=== PATIENT | male | born 1975 | race Caucasian/White ===

== ENCOUNTER 2018-11-22 03:16 | Inpatient (IN) | payer OTHER ==
[2018-11-22] VITALS (31 sets, daily range): BP systolic 103–127; BP diastolic 63–115
[~2018-11-22] VITALS: Ht 181.6 cm; Wt 97.3 kg
--- OUTSIDE RECORDS SUMMARY | 2018-11-22 03:18 | XMS REPORT | Continuity of Care Document ---
Author Author [facility] Organization [facility] Address Unknown Phone Unavailable Care Team Providers Care Thread Cutter Tender Name Role Phone MD Tuan, Tracey MCDONNELL Unavailable Insurance Providers Payer name Policy type / Coverage type Policy ID Covered democrat ID Policy [place] AETNA - CHOICE - NAP (POS II) AETNA - AHF - CHOICE (POS II) AETNA - CHOICE - NAP (POS II) AETNA - CHOICE - NAP (POS II) AETNA - CHOICE - NAP (POS II) AETNA - CHOICE - NAP (POS II) Encounters Encounter Performer Location Date Lab Report Tracey Dickerson MD [facility] May 23, 2015 Problems Problem Effective Dates Problem Status RECTAL BLEEDING May 23, 2015 Active Procedures Date Description Comments May 23, 2015 smoking status Never smoker Immunizations Vaccine Date Status influenza immunization (Flu Vax) has been administered Sep 30, 2014 completed Vital Signs Date Description Test Result May 23, 2015 height E&M - 8302-2 HEIGHT 71 in May 23, 2015 weight E&M - 3141-9 WEIGHT 236 lb May 23, 2015 temperature E&M TEMPERATURE 97.0 deg f May 23, 2015 pulse rate E&M - 8867-4 PULSE RATE 73 /min May 23, 2015 blood pressure, systolic - 8480-6 BP SYSTOLIC 135 mm Hg May 23, 2015 blood pressure, diastolic - 8462-4 BP DIASTOLIC 94 mm Hg Results Date Description Test Name Value Reference Interpretation Status May 23, 2015 hemoglobin, blood HGB 15.1 g/dL 14.0-18.0 May 23, 2015 hematocrit, blood HCT 45.1 % 42.0-54.0 May 23, 2015 platelet count PLATELETS 233 K/CMM /mm3 133-450 May 23, 2015 sodium, serum SODIUM 140 MEQ/L mmol/L 135-145 May 23, 2015 potassium, serum POTASSIUM 5.2 MEQ/L mmol/L 3.5-5.1 High May 23, 2015 creatinine, serum CREATININE 0.8 mg/dL 0.5-1.4 May 23, 2015 urea nitrogen, blood BUN 10 mg/dL 7-22 May 23, 2015 urea nitrogen/creatinine ratio, serum BUN/CREAT 12 null 6-25 May 23, 2015 albumin, serum ALBUMIN 4.4 g/dL 3.5-5.0 May 23, 2015 calcium, serum CALCIUM 9.5 mg/dL 8.5-10.5 May 23, 2015 alanine aminotransferase (SGPT), serum SGPT (ALT) 56 U/L 0-65 May 23, 2015 aspartate aminotransferase (SGOT), serum SGOT (AST) 29 U/L 0-37 May 23, 2015 alkaline phosphatase, serum ALK PHOS 88 U/L 39-136 May 23, 2015 prothrombin time (patient) PT PATIENT 12.7 s 12.0-14.7 May 23, 2015 international normalized ratio (INR) INR 0.95 null 0.85-1.17
--- OUTSIDE RECORDS SUMMARY | 2018-11-22 03:18 | XMS REPORT | Continuity of Care Document ---
Author Author [facility] Interface Address Unknown Phone Unavailable Problems Problem Status Onset Date Classification Date Reported Comments Source RECTAL BLEEDING Active 05/23/2015 Condition 05/28/2015 [facility] Medications Medication Details Route Status Patient Instructions Ordering Provider Order Date Source Allergies, Adverse Reactions, Alerts Substance Category Reaction Severity Reaction type Status Date Reported Comments Source Immunizations Immunization Date Given Site Status Last Updated Comments Source influenza immunization (Flu Vax) has been administered 09/30/2014 completed [facility] Results Order Name Results Value Reference Range Date Interpretation Comments Source Chemistry SODIUM 140 MEQ/L mmol/L 135 - 145 05/23/2015 [facility] Chemistry POTASSIUM 5.2 MEQ/L mmol/L 3.5 - 5.1 05/23/2015 [facility] Chemistry CREATININE 0.8 mg/dL 0.5 - 1.4 05/23/2015 [facility] Chemistry BUN 10 mg/dL 7 - 22 05/23/2015 [facility] Chemistry BUN/CREAT 12 6 - 25 05/23/2015 [facility] Chemistry ALBUMIN 4.4 g/dL 3.5 - 5.0 05/23/2015 [facility] Chemistry CALCIUM 9.5 mg/dL 8.5 - 10.5 05/23/2015 [facility] Chemistry SGPT (ALT) 56 U/L 0 - 65 05/23/2015 [facility] Chemistry SGOT (AST) 29 U/L 0 - 37 05/23/2015 [facility] Chemistry ALK PHOS 88 U/L 39 - 136 05/23/2015 [facility] Coagulation PT PATIENT 12.7 s 12.0 - 14.7 05/23/2015 [facility] Coagulation INR 0.95 0.85 - 1.17 05/23/2015 [facility] Hematology HGB 15.1 g/dL 14.0 - 18.0 05/23/2015 [facility] Hematology HCT 45.1 % 42.0 - 54.0 05/23/2015 [facility] Hematology PLATELETS 233 K/CMM /mm3 133 - 450 05/23/2015 [facility] Vital Signs Vital Sign Value Date Comments Source Height 71 05/23/2015 [facility] Weight 236 05/23/[facility] Temperature Oral (F) 97.0 F 05/23/2015 [facility] Heart Rate 73 05/23/2015 [facility] Systolic (mm Hg) 135 05/23/2015 [facility] Diastolic (mm Hg) 94 05/23/2015 [facility] Encounters Location Location Details Encounter Type Encounter Number Reason For Visit Attending Provider ADM Date DC Date Status [facility] [id number] Tracey Dickerson MD 05/23/2015 05/23/2015 Medical [facility] Office Visit [id number] Tracey Dickerson MD 05/27/2015 05/27/2015 Medical [facility] Outpatient [id number] TRACEY DICKERSON 06/13/2016 Active [facility] [id number] TRACEY DICKERSON 06/19/2016 Active [facility] Outpatient [id number] TRACEY DICKERSON 01/16/2017 Active [facility] Outpatient [id number] TRACEY DICKERSON 04/29/2017 Active [facility] Outpatient [id number] TRACEY DICKERSON 06/15/2017 Active [facility] Outpatient [id number] TRACEY DICKERSON 06/23/2017 Active [facility] [id number] TRACEY DICKERSON 09/24/2017 Active [facility] Outpatient [id number] TRACEY DICKERSON 06/25/2018 Active [facility] Outpatient [id number] NURSE VISIT 06/28/2018 Active [facility] Outpatient [id number] TRACEY DICKERSON 09/15/2018 Active [facility] Outpatient [id number] TRACEY DICKERSON 09/22/2018 Active [facility] Outpatient [id number] TRACEY DICKERSON 12/22/2018 Active [facility] Procedures Procedure Code Date Perfomer Comments Source
--- OUTSIDE RECORDS SUMMARY | 2018-11-22 03:18 | XMS REPORT | Continuity of Care Document ---
Author Author [facility] Organization [facility] Address Unknown Phone Unavailable Care Team Providers Care Bank Guard Name Role Phone MD Tuan, Tracey MCDONNELL Unavailable Insurance Providers Payer name Policy type / Coverage type Policy ID Covered republican ID Policy [place] AETNA - CHOICE - NAP (POS II) AETNA - AHF - CHOICE (POS II) AETNA - CHOICE - NAP (POS II) AETNA - CHOICE - NAP (POS II) AETNA - CHOICE - NAP (POS II) AETNA - CHOICE - NAP (POS II) Encounters Encounter Performer Location Date Office Visit Tracey Dickerson MD [facility] May 27, 2015 Problems Problem Effective Dates Problem Status [...]
[2018-11-22] MEDS ORDERED: SODIUM CHLORIDE 0.9% 1000ML 1,000 ML IV SCH ×2 (04:15→04:47)
[2018-11-22] MEDS ORDERED: DILTIAZEM HCL 5 MG/ML 5 ML VIAL IV STA (04:21)
--- NOTE | 2018-11-22 04:53 | Diagnostic Imaging Report ---
EXAMINATION: Head CT without contrast. HISTORY:Status post fall. COMPARISON:Report of CT brain from 06/20/2012, images are not available for comparison at the time of interpretation. TECHNIQUE: Multidetector axial images were obtained from the foramen magnum to the vertex without contrast. The images were reconstructed using brain and bone algorithms. Thin section brain images were reformatted into coronal and sagittal planes. Dose modulation, iterative reconstruction, and/or weight based adjustment of the mA/kV was utilized to reduce the radiation dose to as low as reasonably achievable. Intravenous contrast: None IMAGE QUALITY: Suboptimal evaluation due to motion artifacts. FINDINGS: Skull/scalp: No lytic or blastic. lesions. No surgical changes. Parenchyma: Linear hypodensity in right frontal lobe represents motion-related artifact (image 20, series 2). No gross acute hemorrhage, mass or acute major vascular territorial infarct. Arteries: No density suggestive of thrombosis. Dural sinuses: No abnormal density suggestive of thrombosis. Ventricles: No hydrocephalus or displacement. Extra-axial spaces: No abnormal density. Brain volume: Normal for age. Craniocervical junction: No mass, Chiari malformation, or basilar invagination. Sella: No mass. Paranasal/mastoid sinuses: Mild mucosal thickening in bilateral ethmoid sinuses. IMPRESSION: Suboptimal evaluation due to motion-related artifacts, despite the limitation no gross acute intracranial abnormality. Signed by: Dr. Belkis Peñaloza M.D. on 11/22/2018 4:49 AM
--- NOTE | 2018-11-22 04:54 | NUR ---
Pt used urinal: 300mL output
--- NOTE | 2018-11-22 04:57 | Diagnostic Imaging Report ---
History: Status post fall. Comparison studies: None Technique: Axial images were obtained through the cervical region.. Coronal and sagittal images reconstructed from the axial data. Dose modulation, iterative reconstruction, and/or weight based adjustment of the mA/kV was utilized to reduce the radiation dose to as low as reasonably achievable. Intravenous contrast: None Findings: Fractures: None. Soft tissue injuries: None. Atlantoaxial articulation: Intact. Alignment: Normal lordosis. No scoliosis. Cervicomedullary junction: No abnormalities. The foramen magnum is patent. Soft tissues: No abnormalities. Vertebrae: No fractures, infection or neoplasm. Degenerative changes: None. IMPRESSION: 1. No acute cervical spine abnormalities. 2. Ligament, spinal cord and or vascular abnormalities cannot be excluded on the basis of this examination. Signed by: Dr. Belkis Peñaloza M.D. on 11/22/2018 4:54 AM
[2018-11-22] MEDS ORDERED: SODIUM CHLORIDE FLUSH 10 ML SYR INJ PRN (05:00)
[2018-11-22] MEDS ORDERED: DILTIAZEM HCL 125 ML IV STA (05:02)
--- NOTE | 2018-11-22 05:12 | NUR ---
[facility] CALLED FOR TRANSPORT
--- OUTSIDE RECORDS SUMMARY | 2018-11-22 05:20 | XMS REPORT ---
Author Author [facility] Address Unknown Phone Unavailable Care Team Providers Care Operating System Designer Name Role Phone Maru BARRAGAN Unavailable Unavailable Problems This patient has no known problems. Allergies, Adverse Reactions, Alerts This patient has no known allergies or adverse reactions. Medications This patient has no known medications. Results Test Description Test Time Test Comments Text Results Atomic Results Result Comments CT C-SPINE W/O - HOPD 2018-11-22 04:50:00 [place] [id number] Patient Name: GALO ESPARZA MR #: [id number] : 1975 Age/Sex: 43/M Req #: [id number] Adm Physician: Ordered by: STEPHANIE BARRAGAN MD Report #: [id number] [facility] Room/Bed: Procedure: [id number] HOPD/CT C-SPINE W/O - HOPD Exam Date: 11/22/18 Exam Time: 035 REPORT STATUS: Signed History: Status post fall. Comparison studies: None Technique: Axial images were obtained through the cervical region.. Coronal and sagittal images reconstructed from the axial data. Dose modulation, iterative reconstruction, and/or weight based adjustment of the mA/kV was utilized to reduce the radiation dose to as low as reasonably achievable. Intravenous contrast: None Findings: Fractures: None. Soft tissue injuries: None. Atlantoaxial articulation: Intact. Alignment: Normal lordosis. No scoliosis. Cervicomedullary junction: No abnormalities. The foramen magnum is patent. Soft tissues: No abnormalities. Vertebrae: No fractures, infection or neoplasm. Degenerative changes: None. IMPRESSION: 1. No acute cervical spine abnormalities. 2. Ligament, spinal cord and or vascular abnormalities cannot be excluded on the basis of this examination. Signed by: Dr. Belkis Sellers M.D. on 11/22/2018 4:54 AM Dictated By: BELKIS SELLERS MD 3 Transcribed By: JOSIANE on 11/22/18453 COPY TO: STEPHANIE BARRAGAN MD CT BRAIN [facility] 2018-11-22 04:44:00 [place] [id number] Patient Name: GALO ESPARZA MR #: [id number] : 1975 Age/Sex: 43/M Req #: [id number] Adm Physician: Ordered by: STEPHANIE BARRAGAN MD Report #: [id number] [facility] Room/Bed: Procedure: [id number] HOPD/CT BRAIN [facility] Exam Date: 11/22/18 Exam Time: 0350 REPORT STATUS: Signed EXAMINATION: Head CT without contrast. HISTORY:Status post fall. COMPARISON:Report of CT brain from 06/20/2012, images are not available for comparison at the time of interpretation. TECHNIQUE: Multidetector axial images were obtained from the foramen magnum to the vertex without contrast. The images were reconstructed using brain and bone algorithms. Thin section brain images were reformatted into coronal and sagittal planes. Dose modulation, iterative reconstruction, and/or weight based adjustment of the mA/kV was utilized to reduce the radiation dose to as low as reasonably achievable. Intravenous contrast: None IMAGE QUALITY: Suboptimal evaluation due to motion artifacts. FINDINGS: Skull/scalp: No lytic or blastic. lesions. No surgical changes. Parenchyma: Linear hypodensity in right frontal lobe represents motion- related artifact (image 20, series 2). No gross acute hemorrhage, mass or acute major vascular territorial infarct. Arteries: No density suggestive of thrombosis. Dural sinuses: No abnormal density suggestive of thrombosis. Ventricles: No hydrocephalus or displacement. Extra- axial spaces: No abnormal density. Brain volume: Normal for age. Craniocervical junction: No mass, Chiari malformation, or basilar invagination. Sella: No mass. Paranasal/mastoid sinuses: Mild mucosal thickening in bilateral ethmoid sinuses. IMPRESSION: Suboptimal evaluation due to motion-related artifacts, despite the limitation no gross acute intracranial abnormality. Signed by: Dr. Belkis Sellers M.D. on 11/22/2018 4:49 AM Dictated By: BELKIS SELLERS MD 8 Transcribed By: JOSIANE on 11/22/18448 COPY TO: STEPHANIE BARRAGAN MD
[2018-11-22] MEDS: DILTIAZEM HCL 125 ML IV PRN ×3 (06:45→10:32)
[2018-11-22] MEDS ORDERED: TESTOSTERO100 MG/1 M IM (06:53)
--- NOTE | 2018-11-22 08:07 | NUR ---
consult called to Dr. Kareem Sloan
--- NOTE | 2018-11-22 09:32 | Diagnostic Imaging Report ---
ADDENDUM #1 ADDENDUM: Reason for exam: Trauma, status post fall Signed by: Dr. Gloria Trinidad MD on 12/01/2018 5:45 PM ORIGINAL REPORT EXAMINATION: CXR 1 [facility] COMPARISON: None FINDINGS: TUBES and LINES: None. LUNGS: Lungs are well inflated. Lungs are clear. There is no evidence of pneumonia or pulmonary edema. PLEURA: No pleural effusion or pneumothorax. HEART AND MEDIASTINUM: The cardiomediastinal silhouette is unremarkable. BONES AND SOFT TISSUES: No acute osseous lesion. Soft tissues are unremarkable. UPPER ABDOMEN: No free air under the diaphragm. IMPRESSION: No acute radiographic abnormality. Signed by: Dr. Gloria Trinidad MD on 11/22/2018 9:29 AM
--- NOTE | 2018-11-22 10:32 | NUR ---
cardizem gtt turned off at this time as hr in 60-70's. rhythm currently sinus. patient converted to nsr around 0913am. pt states he feels less anxious but otherwise asymptomatic. states he is "tired" overall. bp108/68 hr70, rr12, sat 100% room air
[2018-11-22] MEDS ORDERED: METOPROLOL TARTRATE 25 MG TAB PO SCH (12:30)
[2018-11-22] MEDS ORDERED: DRONEDARONE 400 MG TAB PO SCH (13:00)
[2018-11-22 13:40] LABS: BASOPHILS % 0.5 % (0.0-1.0); EOSINOPHILS # (AUTO) 0.1 (0.0-0.4); EOSINOPHILS % 0.6 % (0.0-6.0); HEMATOCRIT 46.4 % (38.2-49.6); LYMPHOCYTES % 11.8 % (18.0-39.1); MEAN CORPUSCULAR HEMOGLOBIN 30.4 pg (28-32); MEAN CORPUSCULAR HGB CONC 34.5 g/dL (31-35); MONOCYTES # (AUTO) 0.7 (0.2-0.8); MONOCYTES % 9.2 % (4.4-11.3); NEUTROPHILS # (AUTO) 6.2 (2.1-6.9); NEUTROPHILS % 77.5 % (38.7-80.0); PLATELET COUNT 246 x10e3/uL (140-360); RED BLOOD COUNT 5.27 x10e6/uL (4.3-5.7); RED CELL DISTRIBUTION WIDTH 12.3 % (11.7-14.4)
[2018-11-22 13:52] LABS: ANION GAP 13.3 mmol/L (8-16); BLOOD UREA NITROGEN 8 mg/dL (7-26); BUN/CREATININE RATIO 9 (6-25); CALCIUM 8.6 mg/dL (8.4-10.2); CARBON DIOXIDE 22 mmol/L (22-29); CHLORIDE 105 mmol/L (98-107); CREATININE, SERUM 0.91 mg/dL (0.72-1.25); EST GLOMERULAR FILTRATION RATE > 60 ML/MIN (60-); GLUCOSE 75 mg/dL (74-118); MAGNESIUM 2.4 MG/DL (1.3-2.1); PHOSPHORUS 3.3 MG/DL (2.3-4.7); POTASSIUM 4.3 mmol/L (3.5-5.1); SODIUM 136 mmol/L (136-145)
[2018-11-22 13:57] LABS: CREATINE KINASE MB 19.2 ng/mL (0-5.0)
[2018-11-22 14:55] LABS: CHOL/HDL RATIO 4.4 (3.9-4.7)
--- NOTE | 2018-11-22 15:16 | Consultation ---
DATE OF CONSULTATION: November 22, 2018 CARDIOLOGY CONSULTATION REASON FOR CONSULTATION: New-onset AFib. CHIEF COMPLAINT: Syncopal episode. HISTORY OF PRESENT ILLNESS: This is a 43-year-old male with history of reflux, depression/anxiety, and low testosterone. Patient presents to [facility] ER with apparently complaint of syncopal episode, was noted in AFib RVR, was started on a diltiazem drip and Cardiology was consulted. Patient seen in the ICU with at bedside, in no acute distress, has already converted back to sinus rhythm prior to seeing patient, apparently from staff about 9:30 this morning. With talking to patient, patient reports that early last night around 2 in the morning felt woozy with pressure sensation in his bladder; so, he went to the restroom and urinated, went back to bed. However, got up again and was feeling gómez. He went to the restroom and had a bowel movement. When he went to wash his hands he reports that he felt even more woozy and apparently he had a syncopal episode with hitting the back of his head. A CT of the head was done, showing no acute abnormalities. On exam does have a small occipital hematoma. With talking to the patient and , patient reports that this will be his third episode. The last episode happened about 2011 and went to similar situation and he went to the restroom, came back, and he felt woozy, gómez, and he passed out. However, he did not seek any medical attention at that time. Patient denies any palpitations or chest pain prior to event. The only complaint is that he felt woozy and gómez. Patient reports now he feels like he is back to his baseline. MEDICAL HISTORY: Reflux, depression/anxiety, low testosterone. SURGERIES: No surgeries are reported. SOCIAL HISTORY: He is . He is a prn physical therapist. Rare alcohol usage. Denies any tobacco use. FAMILY HISTORY: Mother is alive, age 70, apparently reported as healthy. Father alive, age 70s, apparently history of hypertension, AFib. MEDICATION: He takes testosterone injection once weekly. ALLERGIES: NO KNOWN ALLERGIES. REVIEW OF SYSTEMS GENERAL: Denies any weight change, fatigue, weakness, fever, chills, night sweats. SKIN-WATERMAN: No rashes or sores. However, does have small hematoma in his occipital region. HEENT: Denies any nausea, vomiting, any vision changes, blurred vision, double vision. Does use corrective vision. Denies any vertigo, discharge, earaches, rhinorrhea, stuffiness, itching, epistaxis or any bleeding gums, hoarseness, sore throat, swollen neck. CARDIAC: Denies any chest pain, any palpitations, any dyspnea on exertion, any orthopnea or any PND, or any lower extremity edema. RESPIRATORY: Denies any shortness of breath, any wheezing, coughing, hemoptysis. GI: Good appetite. No nausea, vomiting, diarrhea, constipation. However, does have positive hematochezia. Reports having workup with internal hemorrhoids. URINARY: Denies any frequency, urgency, polyuria, hematuria. VASCULAR: Denies any lower extremity edema, claudication, any varicose veins. MUSCULOSKELETAL: Denies any muscle weakness, any back pains. Mild joint pains reported. NEUROLOGIC: No numbness, tingling, tremors, weakness, paralysis. Positive for syncopal episodes, apparently this would be his third episode in the past 5 to 10 years. ENDOCRINE: Denies any heat or cold intolerance, any polyuria, polydipsia, polyphagia. PHYSICAL EXAMINATION VITAL SIGNS: Currently pulse 70, respiratory rate 17, blood pressure 112/71, pulse ox 100% on room air, temperature 97.7. GENERAL: Appears stated age, in no acute distress. SKIN-WATERMAN: No rashes. Positive for bruise posterior occipital. HEENT: Positive bruise in the occipital region. Pupils equal and reactive. Extraocular motor intact. Trachea midline. No thyromegaly noted. No JVD. HEART: Regular rate and rhythm. No murmurs or clicks. LUNGS: Bilateral breath sounds clear to auscultation. No wheezing, no rales. ABDOMEN: Soft, nontender, nondistended. No organomegaly. MUSCULOSKELETAL: Good muscle strength throughout. VASCULAR: +2 bilateral radial pulses, +2 DP and PT bilateral pulses. NEUROLOGIC: Cranial nerves 2-12 intact. LABS: Sodium 141, potassium 3.5, chloride 107, bicarb 29, BUN 8, creatinine 0.7, glucose 101. Hemoglobin 17, hematocrit is 50. COMPUTED TOMOGRAPHY OF THE HEAD: Negative. No acute abnormalities. COMPUTED TOMOGRAPHY SPINE: Also apparently is negative. CHEST X-RAY: No acute abnormalities noted. ELECTROCARDIOGRAM: In chart showing AFib RVR. ASSESSMENT 1. Syncopal episode. 2. New-onset atrial fibrillation. PLAN-WATERMAN 1. Patient presents with a syncopal episode. Apparently this is his third episode in the past several years. Was noted in AFib RVR, was placed on a Cardizem drip, now has self-converted to sinus rhythm this morning. Will consult EP for further evaluation and treatment. 2. Will check a TSH and a lipid panel. 3. Will check an echo to evaluate heart structure and function. Will continue tele monitoring. 4. A CHADS score of 0. Will place the patient on aspirin therapy for now. Will continue to monitor patient and further recommendations as clinical course dictates. Thank you very much for this consult. Dictated by: Iván Mishra NP Job#: [id number] EV
[2018-11-22 15:21] LABS: THYROID STIMULATING HORMONE 0.664 uIU/mL (0.350-4.940)
--- NOTE | 2018-11-22 16:23 | NUR ---
EP consult called this morning. Iván elizabeth spoke with Dr. Gandhi and patient to f/u out patient.
[2018-11-22] MEDS ORDERED: ACETAMINOPHEN 325 MG TAB ONE (18:12)
[2018-11-22] MEDS ORDERED: METOPROLOL TART25 MG PO (18:14)
[2018-11-22] MEDS ORDERED: ASPIRIN EC81 MG PO (18:14)
[2018-11-22] MEDS ORDERED: ATORVASTATIN CA40 MG PO (18:15)
[2018-11-22] MEDS ORDERED: ACETAMINOPHEN 325 MG TAB PO ONE (18:30)
--- NOTE | 2018-11-22 19:01 | History and Physical ---
PRIMARY CARE PHYSICIAN: Dr. Dickerson. CHIEF COMPLAINT: Passing out. HISTORY OF PRESENT ILLNESS: This is a 43-year-old man with a history of low testosterone and syncope on 2 occasions in the past, last time was in 2011. Now, patient was going to the bathroom, passing the gas and having a bowel movement, then passing out. He did hit his head on the tub. Patient was brought to the hospital, found to have atrial fibrillation with rapid ventricular response, placed on a Cardizem drip, evaluated by cardiology, and cleared for discharge. Patient has not had an ultrasound of his carotids nor has he had orthostatic vitals yet. Denies any chest pain or shortness of breath. PAST MEDICAL HISTORY: Low testosterone and syncope x2, last syncope in 2011. PAST SURGICAL HISTORY: None. ALLERGIES: PER ELECTRONIC MEDICAL RECORD. FAMILY AND SOCIAL HISTORY: Patient is . He has 2 children. No alcohol, illicits, or cigarettes. MEDICATIONS: Per electronic medical record. REVIEW OF SYSTEMS: Denies any fever, chills, sweats, nausea, vomiting, diarrhea, vision changes, leg pain, or back pain. PHYSICAL EXAMINATION VITAL SIGNS: Have been reviewed. GENERAL: A tired-appearing man, resting in bed. HEENT: Anicteric. CARDIOVASCULAR: Normal S1, S2. LUNGS: Moderate breath sounds. ABDOMEN: Soft, nontender, nondistended. EXTREMITIES: No edema or calf tenderness. NEUROLOGIC: Alert and oriented x3, moving all extremities. SKIN: Dry. PSYCHIATRIC: Normal affect. LABS: Reviewed. MEDICATIONS: Reviewed. ASSESSMENT: A 43-year-old man with; 1. Syncope. 2. Atrial fibrillation with rapid ventricular response. 3. Hypertension. 4. Overweight state. PLAN 1. He is now converted to sinus rhythm, cleared by cardiology for discharge. 2. He needs 2D echocardiogram and he needs orthostatic vitals and physical therapy for evaluation. He needs to be ambulated down the manuel to see how he does. 3. Patient agrees to get an ultrasound as outpatient for his carotids. He also will see an supply chain specialist for further evaluation of atrial fibrillation. His cardiac enzymes are negative. 4. Thyroid function is normal. 1. Hemoglobin A1c is 12.6, does not have diabetes. 2. He received aspirin and fluids. 3. We will evaluate the patient's orthostatic vitals now and if okay, he will be discharged home. He and his agreed to obtain carotid ultrasound as outpatient and EP study as outpatient. Job#: [id number] DONTRELL
--- NOTE | 2018-11-22 20:04 | NUR ---
patient discharged with prescriptions and all belongings. pt and instructed to follow up with EP and cardiology out patient.
--- NOTE | 2018-11-23 01:17 | Discharge Summary ---
PRINCIPAL DIAGNOSES 1. Syncope. 2. Atrial fibrillation with rapid ventricular response. 3. Hypertension . 4. Overweight state with negative testing for diabetes. SECONDARY DIAGNOSIS: History of syncope. CHIEF COMPLAINT AND HISTORY OF PRESENT ILLNESS: Refer to the H and P. HOSPITAL COURSE: The patient was found to have atrial fibrillation with rapid ventricular response, received Cardizem drip . He is doing better. He has had an echocardiogram, which showed a normal left ventricular ejection fraction. IMPRESSION AND PLAN: EP study planned for outpatient and also carotid ultrasound planned for outpatient. We will obtain orthostatic vitals now, likely discharge later today. He is to follow up with primary care doctor in 1 week and to follow up with technician inventory specialist in 1 week. Followup carotid ultrasound in 3 to 5 days. NICOLASA DOUGHERTY MD Job#: [id number] PUN
[2018-11-23] MEDS ORDERED: ASPIRIN 81 MG ENTERIC COATED PO SCH (09:00)
== END 2018-11-22 19:00 | disposition home or self-care (01) | DRG 310 ==
LOC: FSED 03:16 → ERHOLD 04:51 → ICU 06:14
PROVIDERS: ADMIT Internal Medicine; ATTEND Internal Medicine
DX: I48.91 Unspecified atrial fibrillation (principal); R55 Syncope and collapse; S00.93XA Contusion of unspecified part of head, initial encounter; Z82.49 Family history of ischemic heart disease and other diseases of the circulatory system; I10 Essential (primary) hypertension; E66.3 Overweight; Z68.29 Body mass index [BMI] 29.0-29.9, adult; S00.03XA Contusion of scalp, initial encounter; W01.198A Fall on same level from slipping, tripping and stumbling with subsequent striking against other object, initial encounter; Y93.89 Activity, other specified; Y92.012 Bathroom of single-family (private) house as the place of occurrence of the external cause; K21.9 Gastro-esophageal reflux disease without esophagitis; Z79.890 Hormone replacement therapy
CPT/HCPCS: 36415; 70450; 71045; 72125; 80048; 80053; 80061; 82550; 82553; 83036; 83735; 84100; 84443; 84484; 85025; 85379; 93005; 93306; 99284; J7030

== ENCOUNTER 2021-09-08 08:46 | Emergency (ER) | payer OTHER ==
[~2021-09-08] VITALS: Ht 180.3 cm; Wt 81.6 kg
[~2021-09-08 08:46] MED LIST: ASPIRIN EC81 MG PO; ATORVASTATIN CA40 MG PO; METOPROLOL TART25 MG PO; TESTOSTERO100 MG/1 M IM
[2021-09-08] MEDS ORDERED: KETOROLAC TROMETHAMINE 30 MG/ML VIAL IV STA (09:02)
[2021-09-08] MEDS ORDERED: ONDANSETRON HCL INJ 2MG/ML 2ML 2 MG/ML VIAL IV STA (09:02)
[2021-09-08] MEDS ORDERED: SODIUM CHLORIDE 0.9% 1000ML 1,000 ML IV SCH (09:15)
[2021-09-08] MEDS ORDERED: SODIUM CHLORIDE 0.9% 1000ML 1,000 ML ONE (09:16)
[2021-09-08] MEDS ORDERED: ONDANSETRON HCL INJ 2MG/ML 2ML 2 MG/ML VIAL ONE (09:16)
[2021-09-08] MEDS ORDERED: KETOROLAC TROMETHAMINE 30 MG/ML VIAL ONE (09:16)
[2021-09-08] MEDS ORDERED: MORPHINE SULFATE INJ 4 MG/ML INJ 1ML IV PRN (09:30)
[2021-09-08] MEDS ORDERED: HYDROCODONE/APAP 5MG-325MG TAB PO PRN (10:00)
[2021-09-08] MEDS ORDERED: ONDANSETRON HCL 4 MG ORAL DISINTEGRATING TAB PO ONE (10:15)
[2021-09-08] MEDS ORDERED: ONDANSETRON ODT4 MG PO (10:52)
[2021-09-08] MEDS ORDERED: HYDROCODON-ACE1 EA11 PO (10:52)
[2021-09-08] MEDS ORDERED: IBUPROFEN600 MG PO (10:52)
[2021-09-08] MEDS ORDERED: FLOMAX0.4 MG PO (10:52)
== END 2021-09-08 11:29 | disposition home or self-care (01) ==
LOC: FSED 08:50
DX: N20.0 Calculus of kidney (principal); R10.31 Right lower quadrant pain; R11.0 Nausea; M54.50 Low back pain, unspecified; K21.9 Gastro-esophageal reflux disease without esophagitis; F41.9 Anxiety disorder, unspecified
CPT/HCPCS: 74176; 80053; 81003; 85025; 96374; 96375; 96376; 99283; J1885; J2270; J2405; J7030; Q0162